=== PATIENT | female | born 1970 | race Caucasian/White ===

== ENCOUNTER → 2016-12-07 | Outpatient (CLI) | payer OTHER ==
[~2016-12-07] MED LIST: LEVOTHYROXIN0.025 MG PO
== END ==
LOC: LAB 14:03
DX: Z00.00 Encounter for general adult medical examination without abnormal findings (principal); E05.00 Thyrotoxicosis with diffuse goiter without thyrotoxic crisis or storm; F90.0 Attention-deficit hyperactivity disorder, predominantly inattentive type; R94.6 Abnormal results of thyroid function studies

== ENCOUNTER → 2017-02-22 | Outpatient (CLI) | payer OTHER ==
[2011-12-14 12:45] VITALS: BP 105/68
== END ==
LOC: LAB 10:40
DX: R94.6 Abnormal results of thyroid function studies (principal); E05.00 Thyrotoxicosis with diffuse goiter without thyrotoxic crisis or storm; E61.1 Iron deficiency; Z01.419 Encounter for gynecological examination (general) (routine) without abnormal findings